=== PATIENT | female | born 1940 | race Caucasian/White ===

== ENCOUNTER → 2016-06-19 | Day surgery (SDC) | payer MEDICARE, OTHER ==
[2016-06-19 09:33] LABS: HCT 41.1 % (37.0-47.0); HGB 13.9 g/dl (12.5-16.0); MCH 32.3 pg (25.0-31.0); MCHC 33.8 g/dL (32.0-36.0); MCV 95.4 fL (78.0-100.0); MPV 10.5 fL (6.0-9.5); RBC 4.31 M/uL (4.20-5.40); RDW 12.5 % (11.5-14.0); WBC 5.3 K/uL (4.0-10.5)
[2016-06-19 09:46] LABS: INR 0.93 (0.9-1.2); PROTHROMBIN TIME 12.1 SECONDS (11.7-14.0); PTT 24.7 SECONDS (23.2-31.4)
[2016-06-19 09:53] LABS: CREATININE 0.8 mg/dL (0.5-1.0); POTASSIUM 3.8 mmol/L (3.5-5.1)
== END | disposition home or self-care (01) ==
LOC: FAS 08:56
PROVIDERS: Surgery
DX: C44.729 Squamous cell carcinoma of skin of left lower limb, including hip (principal); L85.8 Other specified epidermal thickening; I10 Essential (primary) hypertension; E78.00 Pure hypercholesterolemia, unspecified; K21.9 Gastro-esophageal reflux disease without esophagitis; K44.9 Diaphragmatic hernia without obstruction or gangrene; M19.90 Unspecified osteoarthritis, unspecified site; N81.10 Cystocele, unspecified; E78.5 Hyperlipidemia, unspecified; Z87.891 Personal history of nicotine dependence; Z88.5 Allergy status to narcotic agent; Z82.3 Family history of stroke; Z83.3 Family history of diabetes mellitus; Z81.1 Family history of alcohol abuse and dependence; Z80.51 Family history of malignant neoplasm of kidney; Z80.0 Family history of malignant neoplasm of digestive organs; Z79.899 Other long term (current) drug therapy; Z90.49 Acquired absence of other specified parts of digestive tract; Z90.89 Acquired absence of other organs
CPT/HCPCS: 36415; 80048; 85610; 85730; 88305; 88312; 93005; J0690; J1100; J2405; J2704; J3010